=== PATIENT | male | born 2000 | race Caucasian/White ===

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

== ENCOUNTER 2021-09-27 23:32 | Emergency (ER) | payer OTHER ==
[2021-09-28] MEDS ORDERED: PREDNISONE 20 M20 MG PO (02:12)
[2021-09-28] MEDS ORDERED: PROAIR HFA8.5 GM INH (02:12)
== END 2021-09-28 02:24 | disposition home or self-care (01) ==
LOC: ER1 23:32
DX: J11.1 Influenza due to unidentified influenza virus with other respiratory manifestations (principal); J45.901 Unspecified asthma with (acute) exacerbation; Z20.822 Contact with and (suspected) exposure to COVID-19
CPT/HCPCS: 71046; 87081; 87880; 99283; U0002